=== PATIENT | male | born 1980 | race Caucasian/White ===

== ENCOUNTER 2023-03-14 10:30 | Outpatient (RCR) | payer BC, SELFPAY | END 2023-05-10 08:44 | disposition home or self-care (01) | PROVIDERS: PCP Family Medicine; Visit Provider Physician Assistant | DX: M51.16 Intervertebral disc disorders with radiculopathy, lumbar region (principal); M48.061 Spinal stenosis, lumbar region without neurogenic claudication; M54.50 Low back pain, unspecified; Z51.89 Encounter for other specified aftercare | CPT/HCPCS: 97012; 97110; 97112; 97162 ==

== ENCOUNTER 2023-08-14 11:04 | Outpatient (CLI) | payer BC, SELFPAY | END 2023-08-14 11:05 | disposition home or self-care (01) | PROVIDERS: PCP Family Medicine; Visit Provider Family Medicine | DX: Z01.818 Encounter for other preprocedural examination (principal); I10 Essential (primary) hypertension | CPT/HCPCS: 80048; 85610; 85730 ==

== ENCOUNTER 2023-10-24 13:04 | Outpatient (REF) | payer BC, SELFPAY | END 2023-10-24 13:05 | disposition home or self-care (01) | LOC: NPINS 13:04 | PROVIDERS: PCP Family Medicine; Visit Provider Neurological Surgery | DX: Z01.818 Encounter for other preprocedural examination (principal) | CPT/HCPCS: 80323 ==

== ENCOUNTER 2023-11-14 10:34 | Outpatient (RCR) | payer BC, SELFPAY | END 2024-01-23 17:35 | disposition home or self-care (01) | PROVIDERS: PCP Family Medicine; Visit Provider Neurological Surgery | DX: M48.062 Spinal stenosis, lumbar region with neurogenic claudication (principal); M51.37 Other intervertebral disc degeneration, lumbosacral region; M51.27 Other intervertebral disc displacement, lumbosacral region; M43.16 Spondylolisthesis, lumbar region; M48.00 Spinal stenosis, site unspecified; M62.81 Muscle weakness (generalized); Z51.89 Encounter for other specified aftercare | CPT/HCPCS: 97110; 97161; 97530 ==

== ENCOUNTER 2023-12-05 10:49 | Outpatient (CLI) | payer BC, SELFPAY ==
--- OUTSIDE RECORDS SUMMARY | 2023-12-05 10:51 | XMS_ITS | Clinical Summary ---
Author Name Unknown Organization [facility] Address [address] [place] [id number] Care Team Providers Care Tank Farm Gauger Name Role Phone No Ref-Primary, Physician Primary Care Provider Allergies Active Allergy Reactions Criticality Noted Date Comments Penicillins 11/27/2012 hives Medications Medication Sig Dispensed Refills Start Date End Date Status lisinopril (PRINIVIL,ZESTRIL) 10 MG tabletIndications:HT N (hypertension) Take 1 tablet by mouth daily. 90 tablet 3 11/27/2012 Active ibuprofen (ADVIL/MOTRIN) 600 MG tablet Take 1 tablet (600 mg) by mouth every 6 hours as needed 20 tablet 03/29/2019 Active oxyCODONE-acetaminop hen (PERCOCET) 5-325 MG tablet Take 1 tablet by mouth every 6 hours as needed for moderate to severe pain 12 tablet 03/29/2019 Active Active Problems Problem Noted Date Diagnosed Date Nephrolith 11/27/2012 HTN (hypertension) 11/27/2012 Hyperlipidemia LDL goal <100 11/27/2012 Resolved Problems Problem Noted Date Diagnosed Date Resolved Date Hyperlipidemia LDL goal <160 11/27/2012 11/27/2012 Family History Medical History Relation Comments Cancer Maternal Grandmother Relation Status Comments Brother Alive Father Alive Maternal Grandfather Alive Maternal Grandmother Mother Alive Paternal Grandfather Alive Paternal Grandmother Sister Alive Son 1 Alive Son 2 Alive Social History Tobacco Use Types Packs/Day Years Used Date Smoking Tobacco: Every Day Cigarettes Smokeless Tobacco: Never Alcohol Use Standard Drinks/Week Comments Yes 0 (1 standard drink = 0.6 oz pur e alcohol) 5-6/wk Sex and Gender Information Value Date Recorded Sex Assigned at Not on file Gender Identity Not on file Sexual Orientation Not on file Last Filed Vital Signs Vital Sign Reading Time Taken Comments Blood Pressure 162/111 03/29/2019 9:45 AM CDT Pulse 52 03/29/2019 8:45 AM CDT Temperature 36.6 ??C (97.8 ??F) 03/29/2019 8:03 AM CD T Respiratory Rate 16 03/29/2019 9:45 AM CDT Oxygen Saturation 100% 03/29/2019 9:45 AM CDT Inhaled Oxygen Concentration - - Weight 81.6 kg (180 lb) 03/29/2019 8:03 AM CDT Height 180.3 cm (5' 11) 11/27/2012 8:01 AM CDT Body Mass Index 25.1 11/27/2012 8:01 AM CDT Plan of Treatment Not on file Care Teams Tank Farm Gauger Relationship Specialty Start Date End Date No Ref-Primary, Physician PCP - General 03/29/19
--- OUTSIDE RECORDS SUMMARY | 2023-12-05 10:51 | XMS_ITS | Clinical Summary ---
Author Name Unknown Organization [facility] Address [address] [place] [address] Care Team Providers Care Negative Cleaner Name Role Phone Elsewhere, Pcp Primary Care Provider Unavailabl e Source Comments Patient records contain information from all sites at [facility]. For routine questions regarding patient records, call [phone] during business hours, M-F 8:00 AM - 5:00 PM Central Time. Record requests for emergency care only can be directed to [phone] at any time.[facility] Allergies Active Allergy Reactions Criticality Noted Date Comments Penicillins Hives (Reselect Reaction) 6 hives Medications Medication Sig Dispensed Refills Start Date End Date Status lisinopriL (PRINIVIL,ZESTRIL) 20 mg tablet Take 1 tablet by mouth daily. 0 02/16/2016 Active metoprolol succinate (TOPROL-XL) 50 mg 24 hr tablet Take 50 mg by mouth daily. 0 05/24/2022 Active azithromycin (ZITHROMAX) 250 mg tablet Take 250 mg by mouth daily. For 5 days for tooth extraction 08/02 0 08/02/2022 Active nabumetone (RELAFEN) 500 mg tablet Take 1 tablet (500 mg total) by mouth 2 (two) times a day. 60 tablet 3 09/13/2022 Active Active Problems Problem Noted Date Diagnosed Date Varicocele 09/01/2022 Hypertension Essential Primary 03/28/2022 Hernia Inguinal Left 03/01/2022 Overview: Added automatically from request for surgery [id number] Depression Major One Episode Moderate 01/13/2014 Hyperlipidemia 11/27/2012 Nicotine Dependence Cigarettes 11/15/2010 Resolved Problems Problem Noted Date Diagnosed Date Resolved Date Other Stimulant Abuse Uncomplicated 12/21/2014 08/09/2022 Cannabis Mild Use Disorder ( Abuse) Uncomplicated 01/13/2014 08/09/2022 Stone Kidney 11/27/2012 08/09/2022 Acne 10/17/1999 08/09/2022 Family History Medical History Relation Name Comments Heart disease Father No Known Problems Mother Relation Name Status Comments Father Mother Social History Tobacco Use Types Packs/Day Years Used Date Smoking Tobacco: Every Day Cigarettes 0.5 Smokeless Tobacco: Never Tobacco Cessation:Ready to Q uit: Not Asked; Counseling Given: Not Answered Alcohol Use Standard Drinks/Week Comments Yes 5 (1 standard drink = 0.6 oz pur e alcohol) once a month Nutrition Answer Date Recorded Nutrition: EVOO Fat Source Unknown 02/22 Nutrition: Servings of Fruits/Vegetables per Day Not on file 02/22/2022 Dental Answer Date Recorded Dental: Regular Dentist Unknown 02/23/20 Sex and Gender Information Value Date Recorded Sex Assigned at Not on file Gender Identity Not on file Sexual Orientation Not on file Last Filed Vital Signs Vital Sign Reading Time Taken Comments Blood Pressure 138/88 09/13/2022 9:43 AM FLEET COORDINATOR Pulse 64 09/13/2022 9:43 AM FLEET COORDINATOR Temperature 36.5 ??C (97.7 ??F) 09/13/2022 9:36 AM CS T Respiratory Rate 18 09/13/2022 9:36 AM FLEET COORDINATOR Oxygen Saturation 97% 09/13/2022 9:36 AM FLEET COORDINATOR Inhaled Oxygen Concentration - - Weight 89.4 kg (197 lb 1.6 oz) 09/13/2022 9:36 A M FLEET COORDINATOR Height 181 cm (5' 11.26) 09/13/2022 9:36 AM FLEET COORDINATOR Body Mass Index 27.29 09/13/2022 9:36 AM FLEET COORDINATOR Plan of Treatment Health Maintenance Due Date Last Done Comments Depression Monitoring (PHQ-9) 1981 HIV Screening 1981 Hepatitis C Screening 1981 Lipid (Cholesterol) Screening 1981 Pneumococcal vaccine (0-64 years) (1 of 2 - PCV) 1987 Hepatitis A Vaccines (1 of 2 - Risk 2-dose series) 2000 Hepatitis B Vaccines (1 of 3 - 19+ 3-dose series) 2000 DTaP,Tdap,and Td Vaccines (3 - Td or Tdap) 03/23/2020 03/23/2010, 04/14/1997 Potassium Level 03/14/2023 03/14/2022, 03/29/2019 Sodium Level 03/14/2023 03/14/2022, 03/29/2019 COVID-19 Vaccine (3 - 2022-2 4 season) 2023 2021, 04/02/2021 Influenza Vaccine (#1) 2023 Creatinine Level (Kidney Function Test) 07/12/2023 07/12/2022, 03/14/2022, 03/29/2019 Tobacco Cessation counseling 07/19/2023 07/19/2022 Office Visit for Blood Pressure Check / Re-check 09/13/2023 09/13/2022 HPV Vaccines Aged Out No longer eligi ble based on patient's age to complete this topic Medical Devices Implanted Type Area Grocery Clerk Stocking Device Identifier Shelf Expiration Date Model / Serial / Lot [facility] 10x15 - [id number] Implanted:Qty: 1 on 03/30/2022 by Javier Turner II, M.D. at [facility] Mesh or Patch Left: Pelvis [employer]onic 08/26/2024 [id number] / / [id number] [facility] 10x15 - [id number] Implanted:Qty: 1 on 03/30/2022 by Javier Turner II, M.D. at [facility] Mesh or Patch Right: Pelvis [employer]onic 08/26/2024 [id number] / / [id number] Advance Directives For more information, please contact: [phone] * Full Code (Latest Code Status on File) Date Activated Date Inactivated Comments 03/30/2022 6:16 AM 03/30/2022 1:20 PM Question Answer Comments Full Code: Discussed Care Teams Negative Cleaner Relationship Specialty Start Date End Date Elsewhere, Pcp PCP - General Internal Medicine 03/30/22
--- OUTSIDE RECORDS SUMMARY | 2023-12-05 10:51 | XMS_ITS | Referral Summary ---
Author Name Unknown Organization [facility] Address [address] [place] [address] Care Team Providers Care Medical Leader Name Role Phone No Ref-Primary, Physician Primary [...] Date Hyperlipidemia LDL goal <160 11/27/2012 11/27/2012 Social History Tobacco Use Types Packs/Day Years [...] of Treatment Not on file Care Teams Medical Leader Relationship Specialty Start Date End Date No Ref-Primary, Physician PCP - General 03/29/19
--- OUTSIDE RECORDS SUMMARY | 2023-12-05 10:51 | XMS_ITS | Referral Summary ---
Author Name Unknown Organization [facility] Address [address] [place] [address] Care Team Providers Care Vice President Name Role Phone Elsewhere, Pcp Primary Care Provider Unavailabl e Source Comments Patient records contain information from all sites at [facility]. For routine questions regarding patient records, call [phone] during business hours, M-F 8:00 AM - 5:00 PM Central Time. Record requests for emergency care only can be directed to [phone] at any time.[facility] Allergies Active Allergy Reactions Criticality Noted [...] Overview: Added automatically from request for surgery [id number] Depression Major One Episode Moderate 01/13/2014 Hyperlipidemia 11/27/2012 Nicotine Dependence Cigarettes 11/15/2010 Resolved Problems Problem Noted Date Diagnosed Date Resolved Date Other Stimulant Abuse Uncomplicated 12/21/2014 08/09/2022 Cannabis Mild Use Disorder ( Abuse) Uncomplicated 01/13/2014 08/09/2022 Stone Kidney 11/27/2012 08/09/2022 Acne 10/17/1999 08/09/2022 Social History Tobacco Use Types Packs/Day Years [...] Comments Blood Pressure 138/88 09/13/2022 9:43 AM FIELD CARE ADVOCATE Pulse 64 09/13/2022 9:43 AM FIELD CARE ADVOCATE Temperature 36.5 ??C (97.7 ??F) 09/13/2022 9:36 AM CS T Respiratory Rate 18 09/13/2022 9:36 AM FIELD CARE ADVOCATE Oxygen Saturation 97% 09/13/2022 9:36 AM FIELD CARE ADVOCATE Inhaled Oxygen Concentration - - Weight 89.4 kg (197 lb 1.6 oz) 09/13/2022 9:36 A M FIELD CARE ADVOCATE Height 181 cm (5' 11.26) 09/13/2022 9:36 AM FIELD CARE ADVOCATE Body Mass Index 27.29 09/13/2022 9:36 AM FIELD CARE ADVOCATE Plan of Treatment Not on file Medical Devices Implanted Type Area Multiple Launch Rocket System Crewmember Device Identifier Shelf Expiration Date Model / Serial / Lot [facility] 10x15 - [id number] Implanted:Qty: 1 on 03/30/2022 by Javier Turner II, M.D. at [facility] Mesh or Patch Left: Pelvis [employer] 08/26/2024 [id number] / / [id number] [facility] 10x15 - [id number] Implanted:Qty: 1 on 03/30/2022 by Javier Turner II, M.D. at [facility] Mesh or Patch Right: Pelvis [employer] 08/26/2024 [id number] / / [id number] Advance Directives For more information, please contact: [phone] * Full Code (Latest Code Status on File) Date Activated Date Inactivated Comments 03/30/2022 6:16 AM 03/30/2022 1:20 PM Question Answer Comments Full Code: Discussed Care Teams Vice President Relationship Specialty Start Date End Date Elsewhere, Pcp PCP - General Internal Medicine 03/30/22
--- OUTSIDE RECORDS SUMMARY | 2023-12-05 10:51 | XMS_ITS ---
Author Name Unknown Organization [facility] Address [address] [place] [address] Care Team Providers Care Vocational Counselor Name Role Phone Unavailable Unavailable Unavailable Surgery Details Not on file Complications Check Surgery Details section. Procedure Estimated Blood Loss Check Surgery Details section. Procedure Findings Check Surgery Details section. Procedure Specimens Taken Check Surgery Details section.
== END 2023-12-05 10:50 | disposition home or self-care (01) ==
PROVIDERS: PCP Family Medicine; Visit Provider Family Medicine
DX: I10 Essential (primary) hypertension (principal); Z13.0 Encounter for screening for diseases of the blood and blood-forming organs and certain disorders involving the immune mechanism; Z11.2 Encounter for screening for other bacterial diseases
CPT/HCPCS: 80048; 85610; 85730; 87081

== ENCOUNTER 2024-08-05 09:54 | Outpatient (CLI) | payer BC, SELFPAY ==
--- OUTSIDE RECORDS SUMMARY | 2024-08-05 09:56 | XMS_ITS | Referral Summary ---
Author Organization [facility] Address [address] [place] [address] Care Team Providers Care Fleet Dispatch Manager Name Role Phone No Ref-Primary, Physician Primary Care Provider Allergies Active Allergy Reactions Criticality Noted Date Comments Penicillins 11/27/2012 hives Medications lisinopril (PRINIVIL,ZESTR IL) 10 MG tabletIndicatio ns:HTN (hypertension) Take 1 tablet by mouth daily. 90 tablet 3 11/27/2012 Active ibuprofen (ADVIL/MOTRIN) 600 MG tablet Take 1 tablet (600 mg) by mouth every 6 hours as needed 20 tablet 03/29/2019 Active oxyCODONE-aceta minophen (PERCOCET) 5-325 MG tablet Take 1 tablet [...] Recorded Sex Assigned at Not on file Legal Sex Male 3:10 AM PROPERTY MASTER Gender Identity Not on file Sexual Orientation Not on file Last Filed Vital Signs Vital Sign Reading Time Taken Comments Blood Pressure 162/111 03/29/2019 9:45 AM CDT Pulse 52 03/29/2019 8:45 AM CDT Temperature 36.6 C (97.8 F) 03/29/2019 8:03 AM CDT Respiratory Rate 16 03/29/2019 9:45 AM CDT Oxygen Saturation 100% 03/29/2019 9:45 AM CDT Inhaled Oxygen Concentration - - Weight 81.6 kg (180 lb) 03/29/2019 8:03 AM CDT Height 180.3 cm (5' 11) 11/27/2012 8:01 AM CDT Body Mass Index 25.1 11/27/2012 8:01 AM CDT Plan of Treatment Not on file Insurance [facility] Care Teams Fleet Dispatch Manager Relationship Specialty Start Date End Date No Ref-Primary, Physician PCP - General 03/29/19
--- OUTSIDE RECORDS SUMMARY | 2024-08-05 09:56 | XMS_ITS | Clinical Summary ---
Author Organization [facility] Address [address] [place] [address] Care Team Providers Care Director Of Medical Services Name Role Phone No Ref-Primary, Physician Primary [...] on file Legal Sex Male 3:10 AM GRUBBER Gender Identity Not on file Sexual Orientation [...] Plan of Treatment Not on file Insurance [facility] Care Teams Director Of Medical Services Relationship Specialty Start Date End Date No Ref-Primary, Physician PCP - General 03/29/19
== END 2024-08-05 09:55 | disposition home or self-care (01) ==
LOC: NFLDREF 09:54
PROVIDERS: PCP Family Medicine; Visit Provider Family Medicine
DX: I10 Essential (primary) hypertension (principal)
CPT/HCPCS: 80048

== ENCOUNTER 2024-09-10 10:08 | Outpatient (CLI) | payer BC, SELFPAY | END 2024-09-10 10:09 | disposition home or self-care (01) | LOC: NFLDREF 09-23 23:05 | PROVIDERS: PCP Family Medicine; Referring Provider Family Medicine; Visit Provider Family Medicine | DX: R35.0 Frequency of micturition (principal); F41.9 Anxiety disorder, unspecified; F32.A Depression, unspecified | CPT/HCPCS: 87086 ==